=== PATIENT | female | born 1955 | race Hispanic/Latino ===

== ENCOUNTER → 2018-03-06 | Outpatient (CLI) | payer BC | LOC: US 08:47 | PROVIDERS: ATTEND Internal Medicine | DX: R10.9 Unspecified abdominal pain (principal) | CPT/HCPCS: 76700 ==

== ENCOUNTER 2020-11-14 19:11 | Inpatient (IN) | payer BC, MEDICARE ==
[~2020-11-14] VITALS: Ht 165.1 cm; Wt 98.1 kg
[2020-11-14] MEDS ORDERED: ASPIRIN 81 MG CHEW TAB PO ONE (19:30)
[2020-11-14] MEDS ORDERED: ACETAMINOPHEN 325 MG TAB ONE (20:45)
[2020-11-14] MEDS ORDERED: SODIUM CHLORIDE 0.9% 1000ML 2,000 ML ONE (20:46)
[2020-11-14] MEDS ORDERED: AMIODARONE 900MG 500 ML IV ONE (20:47)
[2020-11-14] MEDS ORDERED: AMIODARONE HCL 150MG 100 ML ONE (20:47)
[2020-11-14] MEDS ORDERED: SODIUM CHLORIDE 0.9% 1000ML 1,000 ML IV STA ×2 (20:48)
[2020-11-14 20:54] LABS: BASOPHILS % 0.2 % (0.0-1.0); HEMATOCRIT 32.5 % (34.2-44.1); HEMOGLOBIN 10.5 g/dL (12.0-16.0); LYMPHOCYTES # (AUTO) 0.2 (1.0-3.2); LYMPHOCYTES % 3.2 % (18.0-39.1); MEAN CORPUSCULAR HEMOGLOBIN 28.2 pg (28-32); MEAN CORPUSCULAR HGB CONC 32.3 g/dL (31-35); MEAN CORPUSCULAR VOLUME 87.1 fL (81-99); MONOCYTES # (AUTO) 0.1 (0.2-0.8); NEUTROPHILS # (AUTO) 6.2 (2.1-6.9); NEUTROPHILS % 92.8 % (38.7-80.0); PLATELET COUNT 254 x10e3/uL (140-360); RED BLOOD COUNT 3.73 x10e6/uL (3.6-5.1)
[2020-11-14] MEDS ORDERED: CEFEPIME HCL 1GM 1 GM in SODIUM CHLORIDE 0.9% 50ML 50 ML IV ONE (21:00)
[2020-11-14 21:52] LABS: ALBUMIN 2.4 g/dL (3.5-5.0); ALBUMIN/GLOBULIN RATIO 0.8 (0.8-2.0); ANION GAP 13.6 mmol/L (8-16); CALCIUM 9.6 mg/dL (8.4-10.2); CREATININE, SERUM 2.03 mg/dL (0.57-1.11); POTASSIUM 3.6 mmol/L (3.5-5.1)
[2020-11-14] MEDS ORDERED: AMIODARONE 900MG 500 ML IV STA (21:53)
[2020-11-14] MEDS ORDERED: SODIUM CHLORIDE 0.9% 50ML 50 ML ONE (21:54)
[2020-11-14] MEDS ORDERED: IOPAMIDOL 370 MG/ML 200 ML INFUS..BTL INJ ONE (21:54)
[2020-11-14] MEDS ORDERED: MORPHINE SULFATE INJ 4 MG/ML INJ 1ML IV STA (22:00)
[2020-11-14] MEDS ORDERED: AMIODARONE HCL 150 MG/100 ML BAG IV ONE (22:00)
[2020-11-14 22:12] LABS: HYPOCHROMASIA SLIGHT; LYMPHOCYTES % (MANUAL) 5 % (19-48); MONOCYTES % (MANUAL) 2 % (3.4-9.0); NEUTROPHILS % (MANUAL) 92 % (40-74); PLATELET ESTIMATE ADEQUATE; PLATELET MORPHOLOGY COMMENT NORMAL; POIKILOCYTOSIS SLIGHT; RBC MORPHOLOGY COMMENT NORMAL
[2020-11-14] MEDS ORDERED: ACETAMINOPHEN 325 MG TAB PO ONE (22:15)
[2020-11-14 22:20] LABS: CREATINE KINASE MB 1.8 ng/mL (0-5.0)
[2020-11-14] MEDS ORDERED: ASPIRIN 81 MG CHEW TAB ONE (22:39)
[2020-11-14] MEDS ORDERED: PIPERACILLIN/TAZOBAC 3.375 GM in SODIUM CHLORIDE 0.9% 50ML 50 ML IV STA (22:47)
[2020-11-14 23:00] VITALS: BP 86/67
[2020-11-15] VITALS (26 sets, daily range): BP systolic 84–109; BP diastolic 66–93
[2020-11-15] MEDS ORDERED: SODIUM CHLORIDE 0.9% 1000ML 1,000 ML IV ONE
[2020-11-15] MEDS ORDERED: PANTOPRAZOLE 40 MG 10ML VIAL IV STA (00:14)
[2020-11-15] MEDS ORDERED: HYDROMORPHONE 1MG/1ML INJ IV PRN (00:15)
[2020-11-15] MEDS ORDERED: ONDANSETRON HCL INJ 2MG/ML 2ML 2 MG/ML VIAL IV PRN ×2 (00:15→14:45)
[2020-11-15] MEDS ORDERED: KETOROLAC TROMETHAMINE 30 MG/ML VIAL IV PRN (00:15)
[2020-11-15] MEDS ORDERED: ACETAMINOPHEN 1000 MG/100 ML IV PRN (00:15)
[2020-11-15] MEDS: SODIUM CHLORIDE 0.9% 1000ML 1,000 ML IV SCH ×3 (01:07→18:58)
[2020-11-15 01:24] LABS: CLARITY,URINE CLOUDY (CLEAR); COLOR,URINE AMBER (YELLOW); LEUKOCYTE ESTERASE ,URINE NEGATIVE (NEGATIVE)
[2020-11-15 01:25] LABS: KETONES,URINE TRACE (NEGATIVE); NITRITE,URINE NEGATIVE (NEGATIVE); PROTEIN,URINE DIPSTICK 1+ (NEGATIVE); URINE UROBILINOGEN 1 mg/dL (0.2 - 1)
[2020-11-15 01:41] LABS: WBC,URINE (MAN) >50 /HPF (0-5)
[2020-11-15 01:42] LABS: BACTERIA,URINE MANY /HPF; EPITHELIAL CELLS,URINE MODERATE /LPF
[2020-11-15 06:00] LABS: BASOPHILS % 0.3 % (0.0-1.0); HEMATOCRIT 25.8 % (34.2-44.1); HEMOGLOBIN 8.2 g/dL (12.0-16.0); LYMPHOCYTES # (AUTO) 0.3 (1.0-3.2); LYMPHOCYTES % 2.7 % (18.0-39.1); MEAN CORPUSCULAR HEMOGLOBIN 27.8 pg (28-32); MEAN CORPUSCULAR HGB CONC 31.8 g/dL (31-35); MEAN CORPUSCULAR VOLUME 87.5 fL (81-99); MONOCYTES # (AUTO) 0.5 (0.2-0.8); MONOCYTES % 4.5 % (4.4-11.3); NEUTROPHILS # (AUTO) 9.6 (2.1-6.9); PLATELET COUNT 180 x10e3/uL (140-360); RED BLOOD COUNT 2.95 x10e6/uL (3.6-5.1); RED CELL DISTRIBUTION WIDTH 21.1 % (11.7-14.4)
[2020-11-15] MEDS ORDERED: PIPERACILLIN/TAZOBAC 3.375 GM in SODIUM CHLORIDE 0.9% 50ML 50 ML IV SCH (06:00)
[2020-11-15] MEDS: PIPERACILLIN/TAZOBACTAM 2.25 GM in SODIUM CHLORIDE 0.9% 50ML 50 ML IV SCH ×4 (06:01→23:36)
[2020-11-15 06:24] LABS: ALBUMIN/GLOBULIN RATIO 0.7 (0.8-2.0); ANION GAP 13.8 mmol/L (8-16); CALCIUM 8.6 mg/dL (8.4-10.2); CREATININE, SERUM 2.27 mg/dL (0.57-1.11); POTASSIUM 3.8 mmol/L (3.5-5.1)
[2020-11-15] MEDS: PANTOPRAZOLE 40 MG 10ML VIAL IV SCH (08:38)
[2020-11-15] MEDS ORDERED: SODIUM CHLORIDE 0.9% 500ML 500 ML IV ONE (08:45)
[2020-11-15] MEDS ORDERED: DEXTROSE 50% SYRINGE 50 ML IV PRN (08:45)
[2020-11-15] MEDS ORDERED: HYDROCORTISONE SOD SUCCINATE 100 MG VIAL IV ONE (09:15)
[2020-11-15] MEDS: LEVOTHYROXINE SODIUM 100 MCG/VIAL IV SCH (09:43)
[2020-11-15] MEDS ORDERED: LABETALOL HCL 5 MG/ML 20ML VIAL IV ONE (10:00)
[2020-11-15 10:12] LABS: BAND NEUTROPHILS % (MANUAL) 7 %; LYMPHOCYTES % (MANUAL) 6 % (19-48); MONOCYTES % (MANUAL) 3 % (3.4-9.0); MYELOCYTES % (MANUAL) 1 % (0-0); NEUTROPHILS % (MANUAL) 83 % (40-74); NUCLEATED RED BLOOD CELLS 1
[2020-11-15 10:15] LABS: ANISOCYTOSIS MODERATE; ELLIPTOCYTE, RBC SLIGHT; PLATELET ESTIMATE ADEQUATE
[2020-11-15 10:16] LABS: ACANTHOCYTES FEW; BURR CELLS MODERATE; SCHISTOCYTES FEW
[2020-11-15 10:17] LABS: OVALOCYTES FEW; PLATELET MORPHOLOGY COMMENT NORMAL; RBC MORPHOLOGY COMMENT ABNORMAL
[2020-11-15] MEDS ORDERED: AMIODARONE HCL 100 ML IV ONE (10:40)
[2020-11-15 11:41] LABS: INR 1.44; PROTHROMBIN TIME 18.2 seconds (11.9-14.5)
[2020-11-15 11:42] LABS: PARTIAL THROMBOPLASTIN TIME 51.3 seconds (23.8-35.5)
[2020-11-15] MEDS: INSULIN LISPRO 100 UNIT/1 ML 3ML VIAL SQ SCH ×3 (11:52→23:37)
[2020-11-15] MEDS ORDERED: BUPIVACAINE HCL 0.5% INJ 30 ML VIAL INJ ONE (12:33)
[2020-11-15] MEDS ORDERED: LISINOPRIL10 MG PO (12:35)
[2020-11-15] MEDS ORDERED: PRILOSEC OTC20 MG (12:35)
[2020-11-15] MEDS ORDERED: LEVOTHYROXINE50 MCG PO (12:35)
[2020-11-15] MEDS ORDERED: ATORVASTATIN CA20 MG PO (12:35)
[2020-11-15] MEDS ORDERED: METOPROLOL TAR100 MG PO (12:35)
[2020-11-15] MEDS ORDERED: AMIODARONE HCL200 MG PO (12:35)
[2020-11-15] MEDS ORDERED: ELIQUIS5 MG PO (12:35)
[2020-11-15] MEDS ORDERED: HYDRALAZINE HCL50 MG PO (12:35)
[2020-11-15] MEDS ORDERED: ASPIRIN CHEW81 MG PO (12:35)
[2020-11-15] MEDS: AMIODARONE 900MG 500 ML IV SCH (17:35)
[2020-11-15] MEDS ORDERED: LIDOCAINE HCL 2% LOCAL INJ 5 ML SDV VIAL INJ ONE (17:55)
[2020-11-15] MEDS ORDERED: PROPOFOL IV EMULSION 10 MG/ML 20 ML VIAL ONE (17:55)
[2020-11-15] MEDS ORDERED: ROCURONIUM BROMIDE 10 MG/ML 5ML VIAL IV ONE (17:55)
[2020-11-15] MEDS ORDERED: POVIDONE IODINE 0.05% 0.05 % ML PO ONE (17:55)
[2020-11-15] MEDS ORDERED: PHENYLEPHRINE HCL 1% 10 MG/ML VIAL ONE (17:55)
[2020-11-15] MEDS ORDERED: ONDANSETRON HCL INJ 2MG/ML 2ML 2 MG/ML VIAL ONE (17:55)
[2020-11-15] MEDS ORDERED: SEVOFLURANE INHAL SOLN 250 ML PEN BTL ONE (17:55)
[2020-11-15] MEDS ORDERED: VALSARTAN/SACUBITRIL 24MG/26MG 1 EA TAB PO SCH (21:00)
[2020-11-16] VITALS (26 sets, daily range): BP systolic 79–103; BP diastolic 50–88
[2020-11-16] MEDS: SODIUM CHLORIDE 0.9% 1000ML 1,000 ML IV SCH ×2 (05:01→14:11)
[2020-11-16 05:12] LABS: BASOPHILS % 0.2 % (0.0-1.0); HEMATOCRIT 27.6 % (34.2-44.1); HEMOGLOBIN 8.6 g/dL (12.0-16.0); LYMPHOCYTES # (AUTO) 0.6 (1.0-3.2); LYMPHOCYTES % 4.6 % (18.0-39.1); MEAN CORPUSCULAR HEMOGLOBIN 27.7 pg (28-32); MEAN CORPUSCULAR HGB CONC 31.2 g/dL (31-35); MEAN CORPUSCULAR VOLUME 88.7 fL (81-99); MONOCYTES # (AUTO) 0.5 (0.2-0.8); MONOCYTES % 3.5 % (4.4-11.3); NEUTROPHILS # (AUTO) 12.3 (2.1-6.9); NEUTROPHILS % 90.7 % (38.7-80.0); PLATELET COUNT 221 x10e3/uL (140-360); RED BLOOD COUNT 3.11 x10e6/uL (3.6-5.1); RED CELL DISTRIBUTION WIDTH 21.3 % (11.7-14.4)
[2020-11-16] MEDS: INSULIN LISPRO 100 UNIT/1 ML 3ML VIAL SQ SCH ×4 (05:44→23:17)
[2020-11-16] MEDS: LEVOTHYROXINE SODIUM 100 MCG/VIAL IV SCH (05:48)
[2020-11-16] MEDS: PIPERACILLIN/TAZOBACTAM 2.25 GM in SODIUM CHLORIDE 0.9% 50ML 50 ML IV SCH ×3 (05:48→19:58)
[2020-11-16 06:00] LABS: ALBUMIN 1.9 g/dL (3.5-5.0); ALBUMIN/GLOBULIN RATIO 0.6 (0.8-2.0); CALCIUM 8.3 mg/dL (8.4-10.2); CREATININE, SERUM 2.85 mg/dL (0.57-1.11)
[2020-11-16 06:38] LABS: ANISOCYTOSIS MODERATE; BAND NEUTROPHILS % (MANUAL) 2 %; BURR CELLS MODERATE; ELLIPTOCYTE, RBC SLIGHT; LYMPHOCYTES % (MANUAL) 7 % (19-48); MONOCYTES % (MANUAL) 3 % (3.4-9.0); NEUTROPHILS % (MANUAL) 88 % (40-74); PLATELET ESTIMATE ADEQUATE; PLATELET MORPHOLOGY COMMENT NORMAL; RBC MORPHOLOGY COMMENT ABNORMAL
[2020-11-16 06:40] LABS: OVALOCYTES FEW; SCHISTOCYTES FEW
[2020-11-16 06:41] LABS: ACANTHOCYTES FEW
[2020-11-16] MEDS: PANTOPRAZOLE 40 MG 10ML VIAL IV SCH (07:38)
[2020-11-16] MEDS ORDERED: APIXABAN 5 MG TABLET PO SCH (09:00)
[2020-11-16] MEDS ORDERED: CITRIC ACID/SODIUM CITRATE 30 ML UDC PO ONE (10:20)
[2020-11-16] MEDS: CARVEDILOL 3.125 MG TAB PO SCH ×2 (10:21→17:00)
[2020-11-16 11:06] LABS: % IRON SATURATION 5 % (15-50); IRON 6 ug/dL (50-170); TOTAL IRON BINDING CAPACITY 119 ug/dL (261-478); TRANSFERRIN 85 mg/dL (180-382)
[2020-11-16] MEDS: AMIODARONE 900MG 500 ML IV SCH ×2 (13:00→21:51)
[2020-11-16] MEDS ORDERED: FUROSEMIDE INJ 10 MG/ML 2 ML VIAL IV ONE ×2 (14:30→18:30)
[2020-11-16] MEDS ORDERED: SODIUM BICARBONATE 8.4% SYRING 50 ML in SODIUM CHLORIDE 0.45% 1,000 ML IV ONE (16:00)
[2020-11-16] MEDS: ENOXAPARIN SOD INJ 40 MG/0.4 ML SYR SC SCH (18:24)
[2020-11-16] MEDS: HYDROCODONE/APAP 5MG-325MG TAB PO PRN (22:18)
[2020-11-17] VITALS (22 sets, daily range): BP systolic 82–114; BP diastolic 57–87
[2020-11-17] MEDS: SODIUM CHLORIDE 0.9% 1000ML 1,000 ML IV SCH ×4 (00:33→20:59)
[2020-11-17] MEDS: PIPERACILLIN/TAZOBACTAM 2.25 GM in SODIUM CHLORIDE 0.9% 50ML 50 ML IV SCH ×2 (00:33→06:09)
[2020-11-17 04:30] LABS: BASOPHILS % 0.2 % (0.0-1.0); EOSINOPHILS % 0.1 % (0.0-6.0); HEMATOCRIT 26.1 % (34.2-44.1); HEMOGLOBIN 8.5 g/dL (12.0-16.0); LYMPHOCYTES % 7.5 % (18.0-39.1); MEAN CORPUSCULAR HEMOGLOBIN 28.2 pg (28-32); MEAN CORPUSCULAR HGB CONC 32.6 g/dL (31-35); MEAN CORPUSCULAR VOLUME 86.7 fL (81-99); MONOCYTES # (AUTO) 0.4 (0.2-0.8); MONOCYTES % 2.7 % (4.4-11.3); NEUTROPHILS # (AUTO) 11.5 (2.1-6.9); NEUTROPHILS % 88.3 % (38.7-80.0); PLATELET COUNT 218 x10e3/uL (140-360); RED BLOOD COUNT 3.01 x10e6/uL (3.6-5.1); RED CELL DISTRIBUTION WIDTH 21.7 % (11.7-14.4)
[2020-11-17 04:41] LABS: INR 1.15; PROTHROMBIN TIME 15.4 seconds (11.9-14.5)
[2020-11-17 04:50] LABS: ALBUMIN 1.6 g/dL (3.5-5.0); ALBUMIN/GLOBULIN RATIO 0.5 (0.8-2.0); ANION GAP 14.8 mmol/L (8-16); CALCIUM 8.5 mg/dL (8.4-10.2); CREATININE, SERUM 2.57 mg/dL (0.57-1.11); POTASSIUM 3.8 mmol/L (3.5-5.1)
[2020-11-17] MEDS: LEVOTHYROXINE SODIUM 100 MCG/VIAL IV SCH (05:39)
[2020-11-17] MEDS: INSULIN LISPRO 100 UNIT/1 ML 3ML VIAL SQ SCH ×3 (05:39→18:53)
[2020-11-17 07:26] LABS: EOSINOPHILS % (MANUAL) 1 % (0-7); LYMPHOCYTES % (MANUAL) 7 % (19-48); MONOCYTES % (MANUAL) 2 % (3.4-9.0); NEUTROPHILS % (MANUAL) 90 % (40-74)
[2020-11-17 07:36] LABS: ANISOCYTOSIS MODERATE; BURR CELLS MODERATE
[2020-11-17 07:37] LABS: TEAR DROP CELLS FEW
[2020-11-17 07:38] LABS: PLATELET ESTIMATE ADEQUATE; PLATELET MORPHOLOGY COMMENT NORMAL; RBC MORPHOLOGY COMMENT ABNORMAL; SCHISTOCYTES RARE
[2020-11-17] MEDS: CARVEDILOL 3.125 MG TAB PO SCH ×2 (08:05→14:22)
[2020-11-17] MEDS: PANTOPRAZOLE 40 MG 10ML VIAL IV SCH (08:43)
[2020-11-17] MEDS: HYDROCODONE/APAP 5MG-325MG TAB PO PRN ×2 (09:54→14:30)
[2020-11-17] MEDS ORDERED: BUMETANIDE 1 MG TAB PO ONE (12:45)
[2020-11-17] MEDS ORDERED: BUMETANIDE INJ 0.25MG/ML 4ML VIAL IV ONE (13:15)
[2020-11-17] MEDS: MEROPENEM 500MG 500 MG in SODIUM CHLORIDE 0.9% 50ML 50 ML IV SCH ×2 (14:22→20:58)
[2020-11-17] MEDS: SODIUM BICARBONATE 8.4% SYRING 50 ML in SODIUM CHLORIDE 0.45% 1,000 ML IV SCH (18:41)
[2020-11-17] MEDS: ENOXAPARIN SOD INJ 40 MG/0.4 ML SYR SC SCH (18:41)
[2020-11-17] MEDS: METOPROLOL TARTRATE INJ 1 MG/ML VIAL IV PRN (20:13)
[2020-11-17] MEDS ORDERED: MORPHINE SULFATE INJ 2 MG/ML SYR IV STA ×2 (21:50→21:53)
[2020-11-17] MEDS ORDERED: NALOXONE HCL INJ 0.4 MG/ML AMP IV PRN (22:00)
[2020-11-17 22:12] LABS: CREATINE KINASE MB 1.1 ng/mL (0-5.0)
[2020-11-18] VITALS (25 sets, daily range): BP systolic 102–130; BP diastolic 74–117
[2020-11-18 03:43] LABS: BASOPHILS % 0.2 % (0.0-1.0); EOSINOPHILS # (AUTO) 0.1 (0.0-0.4); EOSINOPHILS % 0.4 % (0.0-6.0); HEMATOCRIT 27.5 % (34.2-44.1); LYMPHOCYTES % 8.1 % (18.0-39.1); MEAN CORPUSCULAR HEMOGLOBIN 28.5 pg (28-32); MEAN CORPUSCULAR HGB CONC 32.7 g/dL (31-35); MONOCYTES # (AUTO) 0.5 (0.2-0.8); MONOCYTES % 3.7 % (4.4-11.3); NEUTROPHILS % 86.1 % (38.7-80.0); PLATELET COUNT 246 x10e3/uL (140-360); RED BLOOD COUNT 3.16 x10e6/uL (3.6-5.1); RED CELL DISTRIBUTION WIDTH 22.1 % (11.7-14.4)
[2020-11-18 04:02] LABS: MAGNESIUM 1.3 MG/DL (1.3-2.1); PHOSPHORUS 3.3 MG/DL (2.3-4.7)
[2020-11-18 04:05] LABS: CREATINE KINASE MB 1.3 ng/mL (0-5.0)
[2020-11-18 04:08] LABS: ALBUMIN 1.8 g/dL (3.5-5.0); ALBUMIN/GLOBULIN RATIO 0.5 (0.8-2.0); ANION GAP 14.7 mmol/L (8-16); CALCIUM 9.1 mg/dL (8.4-10.2); CREATININE, SERUM 1.86 mg/dL (0.57-1.11); POTASSIUM 3.7 mmol/L (3.5-5.1)
[2020-11-18] MEDS: SODIUM BICARBONATE 8.4% SYRING 50 ML in SODIUM CHLORIDE 0.45% 1,000 ML IV SCH (04:36)
[2020-11-18] MEDS: METOPROLOL TARTRATE INJ 1 MG/ML VIAL IV PRN (04:57)
[2020-11-18] MEDS: MEROPENEM 500MG 500 MG in SODIUM CHLORIDE 0.9% 50ML 50 ML IV SCH ×3 (04:57→20:03)
[2020-11-18] MEDS: HYDROCODONE/APAP 5MG-325MG TAB PO PRN (04:57)
[2020-11-18] MEDS: LEVOTHYROXINE SODIUM 50 MCG TAB PO SCH (05:30)
[2020-11-18] MEDS: INSULIN LISPRO 100 UNIT/1 ML 3ML VIAL SQ SCH ×4 (05:54→20:02)
[2020-11-18] MEDS: SODIUM CHLORIDE 0.9% 1000ML 1,000 ML IV SCH ×3 (07:36→20:03)
[2020-11-18] MEDS: OMEPRAZOLE 20 MG CAP PO SCH (08:30)
[2020-11-18] MEDS: CARVEDILOL 3.125 MG TAB PO SCH ×2 (08:30→18:00)
[2020-11-18] MEDS ORDERED: MAGNESIUM SULFATE 2GM/50ML 50 ML IV ONE ×2 (12:45)
[2020-11-18] MEDS: AMIODARONE 900MG 500 ML IV SCH (13:00)
[2020-11-18] MEDS: ENOXAPARIN SOD INJ 40 MG/0.4 ML SYR SC SCH (17:30)
[2020-11-18] MEDS: SODIUM BICARBONATE 8.4% 150 ML in DEXTROSE 5% 1,000 ML IV SCH (20:58)
[2020-11-18] MEDS ORDERED: DEXTROSE 5% 1,000 ML IV ONE (21:09)
[2020-11-18] MEDS ORDERED: SODIUM BICARBONATE 8.4% SYRING 150 ML ONE (21:10)
[2020-11-19] VITALS (27 sets, daily range): BP systolic 115–156; BP diastolic 86–119
[2020-11-19] MEDS: METOPROLOL TARTRATE INJ 1 MG/ML VIAL IV PRN ×2 (01:39→18:03)
[2020-11-19 03:54] LABS: BASOPHILS % 0.1 % (0.0-1.0); EOSINOPHILS # (AUTO) 0.1 (0.0-0.4); EOSINOPHILS % 0.5 % (0.0-6.0); HEMATOCRIT 25.9 % (34.2-44.1); HEMOGLOBIN 8.5 g/dL (12.0-16.0); LYMPHOCYTES # (AUTO) 0.9 (1.0-3.2); LYMPHOCYTES % 8.2 % (18.0-39.1); MEAN CORPUSCULAR HEMOGLOBIN 28.5 pg (28-32); MEAN CORPUSCULAR HGB CONC 32.8 g/dL (31-35); MEAN CORPUSCULAR VOLUME 86.9 fL (81-99); MONOCYTES # (AUTO) 0.6 (0.2-0.8); MONOCYTES % 5.2 % (4.4-11.3); NEUTROPHILS # (AUTO) 9.3 (2.1-6.9); NEUTROPHILS % 84.3 % (38.7-80.0); PLATELET COUNT 249 x10e3/uL (140-360); RED BLOOD COUNT 2.98 x10e6/uL (3.6-5.1); RED CELL DISTRIBUTION WIDTH 22.1 % (11.7-14.4)
[2020-11-19] MEDS: MEROPENEM 500MG 500 MG in SODIUM CHLORIDE 0.9% 50ML 50 ML IV SCH ×3 (04:02→21:19)
[2020-11-19 04:14] LABS: ALBUMIN 1.7 g/dL (3.5-5.0); ALBUMIN/GLOBULIN RATIO 0.5 (0.8-2.0); ANION GAP 12.7 mmol/L (8-16); CREATININE, SERUM 1.32 mg/dL (0.57-1.11); PHOSPHORUS 2.6 MG/DL (2.3-4.7); POTASSIUM 3.7 mmol/L (3.5-5.1)
[2020-11-19] MEDS: HYDROCODONE/APAP 5MG-325MG TAB PO PRN ×2 (04:49→11:45)
[2020-11-19] MEDS: LEVOTHYROXINE SODIUM 50 MCG TAB PO SCH (04:49)
[2020-11-19] MEDS: INSULIN LISPRO 100 UNIT/1 ML 3ML VIAL SQ SCH ×4 (07:07→21:33)
[2020-11-19] MEDS: OMEPRAZOLE 20 MG CAP PO SCH (09:24)
[2020-11-19] MEDS: CARVEDILOL 3.125 MG TAB PO SCH (09:25)
[2020-11-19] MEDS: METOPROLOL TARTRATE 50 MG TAB PO SCH ×3 (11:19→21:20)
[2020-11-19] MEDS: SODIUM BICARBONATE 8.4% 150 ML in DEXTROSE 5% 1,000 ML IV SCH (12:22)
[2020-11-19] MEDS ORDERED: POTASSIUM PHOSPHATE 15 MM in SODIUM CHLORIDE 0.9% 250ML 250 ML IV ONE (13:00)
[2020-11-19] MEDS ORDERED: MAGNESIUM SULF 1GRAM/DEXTROSE 100 ML IV ONE (13:00)
[2020-11-19] MEDS: AMIODARONE 900MG 500 ML IV SCH (13:00)
[2020-11-19] MEDS: ENOXAPARIN SOD INJ 40 MG/0.4 ML SYR SC SCH (17:49)
[2020-11-19] MEDS ORDERED: FUROSEMIDE INJ 10 MG/ML 2 ML VIAL IV ONE (21:15)
[2020-11-19] MEDS ORDERED: SODIUM BICARBONATE 8.4% SYRING 50 ML in SODIUM CHLORIDE 0.45% 1,000 ML IV SCH (23:59)
[2020-11-20] VITALS (24 sets, daily range): BP systolic 114–159; BP diastolic 97–124
[2020-11-20 05:34] LABS: BASOPHILS % 0.1 % (0.0-1.0); EOSINOPHILS % 0.4 % (0.0-6.0); HEMATOCRIT 28.2 % (34.2-44.1); HEMOGLOBIN 9.2 g/dL (12.0-16.0); LYMPHOCYTES # (AUTO) 0.9 (1.0-3.2); MEAN CORPUSCULAR HEMOGLOBIN 27.7 pg (28-32); MEAN CORPUSCULAR HGB CONC 32.6 g/dL (31-35); MEAN CORPUSCULAR VOLUME 84.9 fL (81-99); MONOCYTES # (AUTO) 0.7 (0.2-0.8); MONOCYTES % 6.5 % (4.4-11.3); NEUTROPHILS # (AUTO) 8.3 (2.1-6.9); NEUTROPHILS % 79.8 % (38.7-80.0); PLATELET COUNT 290 x10e3/uL (140-360); RED BLOOD COUNT 3.32 x10e6/uL (3.6-5.1); RED CELL DISTRIBUTION WIDTH 21.3 % (11.7-14.4)
[2020-11-20] MEDS: LEVOTHYROXINE SODIUM 50 MCG TAB PO SCH (05:36)
[2020-11-20] MEDS: MEROPENEM 500MG 500 MG in SODIUM CHLORIDE 0.9% 50ML 50 ML IV SCH ×3 (05:36→21:02)
[2020-11-20] MEDS: METOPROLOL TARTRATE 50 MG TAB PO SCH (05:36)
[2020-11-20 05:40] LABS: CALCIUM IONIZED 1.4 mmol/L (1.09-1.30)
[2020-11-20 05:54] LABS: ALANINE AMINOTRANSFERASE 16 IU/L (0-55); ALBUMIN 1.8 g/dL (3.5-5.0); ALBUMIN/GLOBULIN RATIO 0.5 (0.8-2.0); ALKALINE PHOSPHATASE 133 IU/L (40-150); ANION GAP 11.3 mmol/L (8-16); BLOOD UREA NITROGEN 27 mg/dL (7-26); BUN/CREATININE RATIO 30 (6-25); CALCIUM 9.2 mg/dL (8.4-10.2); CARBON DIOXIDE 22 mmol/L (22-29); CHLORIDE 103 mmol/L (98-107); CREATININE, SERUM 0.89 mg/dL (0.57-1.11); EST GLOMERULAR FILTRATION RATE > 60 ML/MIN (60-); GLUCOSE 130 mg/dL (74-118); POTASSIUM 3.3 mmol/L (3.5-5.1); SODIUM 133 mmol/L (136-145)
[2020-11-20 06:08] LABS: MAGNESIUM 1.5 MG/DL (1.3-2.1); PHOSPHORUS 1.8 MG/DL (2.3-4.7)
[2020-11-20] MEDS: INSULIN LISPRO 100 UNIT/1 ML 3ML VIAL SQ SCH ×4 (07:30→20:44)
[2020-11-20] MEDS: OMEPRAZOLE 20 MG CAP PO SCH (07:56)
[2020-11-20] MEDS ORDERED: POTASSIUM CHLORIDE 10MEQ EA PO ONE (09:00)
[2020-11-20] MEDS ORDERED: MAGNESIUM SULFATE 2GM/50ML IV ONE (09:00)
[2020-11-20] MEDS ORDERED: POTASSIUM PHOSPHATE 20 MM in SODIUM CHLORIDE 0.9% 250ML 250 ML IV ONE (09:00)
[2020-11-20] MEDS ORDERED: MAGNESIUM SULFATE 2GM/50ML 50 ML IV SCH (09:00)
[2020-11-20 09:33] LABS: AMYLASE 28 U/L (25-125); LIPASE 44 U/L (8-78)
[2020-11-20] MEDS: AMIODARONE HCL 200 MG TAB PO SCH ×2 (13:07→17:22)
[2020-11-20] MEDS ORDERED: MAGNESIUM OXIDE 400 MG TAB PO ONE (14:00)
[2020-11-20] MEDS: METOPROLOL TARTRATE 25 MG TAB PO SCH ×2 (15:21→21:02)
[2020-11-20] MEDS: ENOXAPARIN SOD INJ 40 MG/0.4 ML SYR SC SCH (17:22)
[2020-11-21] VITALS (12 sets, daily range): BP systolic 115–148; BP diastolic 86–119
[2020-11-21 04:54] LABS: BASOPHILS % 0.1 % (0.0-1.0); EOSINOPHILS % 0.3 % (0.0-6.0); HEMATOCRIT 29.8 % (34.2-44.1); HEMOGLOBIN 9.5 g/dL (12.0-16.0); LYMPHOCYTES % 8.6 % (18.0-39.1); MEAN CORPUSCULAR HEMOGLOBIN 27.7 pg (28-32); MEAN CORPUSCULAR HGB CONC 31.9 g/dL (31-35); MEAN CORPUSCULAR VOLUME 86.9 fL (81-99); MONOCYTES # (AUTO) 0.7 (0.2-0.8); NEUTROPHILS # (AUTO) 9.6 (2.1-6.9); NEUTROPHILS % 82.8 % (38.7-80.0); PLATELET COUNT 342 x10e3/uL (140-360); RED BLOOD COUNT 3.43 x10e6/uL (3.6-5.1)
[2020-11-21 05:15] LABS: ALANINE AMINOTRANSFERASE 16 IU/L (0-55); ALBUMIN 1.8 g/dL (3.5-5.0); ALBUMIN/GLOBULIN RATIO 0.5 (0.8-2.0); ALKALINE PHOSPHATASE 143 IU/L (40-150); ANION GAP 13.2 mmol/L (8-16); BLOOD UREA NITROGEN 21 mg/dL (7-26); BUN/CREATININE RATIO 26 (6-25); CALCIUM 9.5 mg/dL (8.4-10.2); CARBON DIOXIDE 21 mmol/L (22-29); CHLORIDE 106 mmol/L (98-107); CREATININE, SERUM 0.82 mg/dL (0.57-1.11); EST GLOMERULAR FILTRATION RATE > 60 ML/MIN (60-); GLUCOSE 140 mg/dL (74-118); POTASSIUM 4.2 mmol/L (3.5-5.1); SODIUM 136 mmol/L (136-145)
[2020-11-21 05:47] LABS: MAGNESIUM 1.7 MG/DL (1.3-2.1); PHOSPHORUS 2.3 MG/DL (2.3-4.7)
[2020-11-21] MEDS: METOPROLOL TARTRATE 25 MG TAB PO SCH ×2 (06:05→16:36)
[2020-11-21] MEDS: MEROPENEM 500MG 500 MG in SODIUM CHLORIDE 0.9% 50ML 50 ML IV SCH ×3 (06:05→22:00)
[2020-11-21] MEDS: LEVOTHYROXINE SODIUM 50 MCG TAB PO SCH (06:05)
[2020-11-21] MEDS: INSULIN LISPRO 100 UNIT/1 ML 3ML VIAL SQ SCH ×4 (07:08→21:00)
[2020-11-21] MEDS: OMEPRAZOLE 20 MG CAP PO SCH (08:01)
[2020-11-21] MEDS: AMIODARONE HCL 200 MG TAB PO SCH ×2 (08:01→16:36)
[2020-11-21] MEDS ORDERED: METOPROLOL TARTRATE 25 MG TAB PO NR (09:15)
[2020-11-21] MEDS ORDERED: METOPROLOL TARTRATE 25 MG TAB PO SCH (09:15)
[2020-11-21] MEDS ORDERED: ENOXAPARIN SOD INJ 40 MG/0.4 ML SYR SC SCH (17:00)
[2020-11-21] MEDS ORDERED: SODIUM CHLORIDE 0.9% 250ML 250 ML ONE (23:11)
[2020-11-22] VITALS (8 sets, daily range): BP systolic 95–164; BP diastolic 54–113
[2020-11-22] MEDS: LEVOTHYROXINE SODIUM 50 MCG TAB PO SCH (05:21)
[2020-11-22] MEDS: MEROPENEM 500MG 500 MG in SODIUM CHLORIDE 0.9% 50ML 50 ML IV SCH ×3 (05:21→21:26)
[2020-11-22] MEDS ORDERED: SODIUM CHLORIDE 0.9% 50ML 50 ML ONE (05:42)
[2020-11-22] MEDS: INSULIN LISPRO 100 UNIT/1 ML 3ML VIAL SQ SCH ×4 (07:30→21:33)
[2020-11-22] MEDS: AMIODARONE HCL 200 MG TAB PO SCH ×2 (09:28→16:23)
[2020-11-22] MEDS: OMEPRAZOLE 20 MG CAP PO SCH (09:28)
[2020-11-22] MEDS: METOPROLOL TARTRATE 25 MG TAB PO SCH ×2 (09:28→16:24)
[2020-11-22 15:44] LABS: BODY FLUID APPEARANCE CLOUDY; BODY FLUID COLOR YELLOW; BODY FLUID TYPE PLEURAL
[2020-11-22 16:48] LABS: RBC,BODY FLUID < 2000 cells/uL; WBC,BODY FLUID 173 cells/uL
[2020-11-22 17:00] LABS: LYMPHOCYTES,BODY FLUID 70 %; MONO/MACROPHG,BODY FLUID 9 %; NEUTROPHILS,BODY FLUID 14 %; OTHER CELLS,BODY FLUID 7 %
[2020-11-22] MEDS: ENOXAPARIN INJ 80 MG/0.8 ML SYR SC SCH (17:21)
[2020-11-23] VITALS (7 sets, daily range): BP systolic 125–146; BP diastolic 95–110
[2020-11-23 04:54] LABS: BASOPHILS % 0.1 % (0.0-1.0); EOSINOPHILS # (AUTO) 0.1 (0.0-0.4); EOSINOPHILS % 0.7 % (0.0-6.0); HEMATOCRIT 28.6 % (34.2-44.1); HEMOGLOBIN 8.9 g/dL (12.0-16.0); LYMPHOCYTES # (AUTO) 1.1 (1.0-3.2); LYMPHOCYTES % 11.9 % (18.0-39.1); MEAN CORPUSCULAR HEMOGLOBIN 27.3 pg (28-32); MEAN CORPUSCULAR HGB CONC 31.1 g/dL (31-35); MEAN CORPUSCULAR VOLUME 87.7 fL (81-99); MONOCYTES # (AUTO) 0.5 (0.2-0.8); MONOCYTES % 5.6 % (4.4-11.3); NEUTROPHILS # (AUTO) 7.2 (2.1-6.9); NEUTROPHILS % 80.5 % (38.7-80.0); PLATELET COUNT 332 x10e3/uL (140-360); RED BLOOD COUNT 3.26 x10e6/uL (3.6-5.1); RED CELL DISTRIBUTION WIDTH 21.7 % (11.7-14.4)
[2020-11-23] MEDS: LEVOTHYROXINE SODIUM 50 MCG TAB PO SCH (05:05)
[2020-11-23] MEDS: MEROPENEM 500MG 500 MG in SODIUM CHLORIDE 0.9% 50ML 50 ML IV SCH ×3 (05:05→21:47)
[2020-11-23 05:17] LABS: ANION GAP 10.3 mmol/L (8-16); BLOOD UREA NITROGEN 16 mg/dL (7-26); BUN/CREATININE RATIO 21 (6-25); CALCIUM 9.6 mg/dL (8.4-10.2); CARBON DIOXIDE 23 mmol/L (22-29); CHLORIDE 108 mmol/L (98-107); CREATININE, SERUM 0.75 mg/dL (0.57-1.11); EST GLOMERULAR FILTRATION RATE > 60 ML/MIN (60-); GLUCOSE 142 mg/dL (74-118); POTASSIUM 4.3 mmol/L (3.5-5.1); SODIUM 137 mmol/L (136-145)
[2020-11-23] MEDS: INSULIN LISPRO 100 UNIT/1 ML 3ML VIAL SQ SCH ×4 (07:30→21:00)
[2020-11-23] MEDS: AMIODARONE HCL 200 MG TAB PO SCH ×2 (09:46→17:07)
[2020-11-23] MEDS: METOPROLOL TARTRATE 25 MG TAB PO SCH (09:50)
[2020-11-23] MEDS: ENOXAPARIN INJ 80 MG/0.8 ML SYR SC SCH ×2 (09:50→17:07)
[2020-11-23] MEDS: OMEPRAZOLE 20 MG CAP PO SCH (09:50)
[2020-11-23] MEDS ORDERED: ACETAMINOPHEN 325 MG TAB PO PRN (10:30)
[2020-11-23 12:13] LABS: FREE THYROXINE INDEX 1.8395 (1.4-3.8); THYROID STIMULATING HORMONE 29.734 uIU/mL (0.350-4.940)
[2020-11-23] MEDS: METOPROLOL TARTRATE 50 MG TAB PO SCH ×2 (13:21→22:28)
[2020-11-23] MEDS ORDERED: FUROSEMIDE INJ 10 MG/ML 4 ML VIAL IV SCH (18:00)
[2020-11-24] VITALS: BP 127/116
[2020-11-24 04:00] VITALS: BP 119/98
[2020-11-24] MEDS: MEROPENEM 500MG 500 MG in SODIUM CHLORIDE 0.9% 50ML 50 ML IV SCH (05:39)
[2020-11-24] MEDS: LEVOTHYROXINE SODIUM 50 MCG TAB PO SCH (05:40)
[2020-11-24] MEDS: METOPROLOL TARTRATE 50 MG TAB PO SCH ×2 (05:40→12:15)
[2020-11-24] MEDS: INSULIN LISPRO 100 UNIT/1 ML 3ML VIAL SQ SCH ×2 (07:30→12:15)
[2020-11-24] MEDS: OMEPRAZOLE 20 MG CAP PO SCH (08:22)
[2020-11-24] MEDS: AMIODARONE HCL 200 MG TAB PO SCH (08:22)
[2020-11-24 08:23] VITALS: BP 121/87
[2020-11-24] MEDS: ENOXAPARIN INJ 80 MG/0.8 ML SYR SC SCH (08:25)
[2020-11-24 08:31] VITALS: BP 121/87
[2020-11-24] MEDS ORDERED: FUROSEMIDE 40 MG TAB PO SCH (09:00)
[2020-11-24 12:00] VITALS: BP 105/81
[2020-11-24] MEDS ORDERED: MEROPENEM 500MG/ NS 50ML 50 ML IV SCH (14:00)
== END 2020-11-24 14:18 | DRG 853 ==
LOC: ER 19:16 → ERHOLD 22:40 → ICU 23:05 → MED/SURG3 11-21 19:50
PROVIDERS: ADMIT Internal Medicine; ATTEND Internal Medicine
PROC: 02HV33Z Insertion of Infusion Device into Superior Vena Cava, Percutaneous Approach (ICD-10-PCS; 2020-11-15)
PROC: 0FT44ZZ Resection of Gallbladder, Percutaneous Endoscopic Approach (ICD-10-PCS; principal; 2020-11-15 13:30)
PROC: 0W993ZZ Drainage of Right Pleural Cavity, Percutaneous Approach (ICD-10-PCS; 2020-11-22)
DX: A41.9 Sepsis, unspecified organism (principal); R65.21 Severe sepsis with septic shock; J18.9 Pneumonia, unspecified organism; J96.01 Acute respiratory failure with hypoxia; I50.23 Acute on chronic systolic (congestive) heart failure; K81.0 Acute cholecystitis; N17.9 Acute kidney failure, unspecified; I13.0 Hypertensive heart and chronic kidney disease with heart failure and stage 1 through stage 4 chronic kidney disease, or unspecified chronic kidney disease; I69.354 Hemiplegia and hemiparesis following cerebral infarction affecting left non-dominant side; E87.2 Acidosis; N39.0 Urinary tract infection, site not specified; Z16.12 Extended spectrum beta lactamase (ESBL) resistance; I50.9 Heart failure, unspecified; I25.10 Atherosclerotic heart disease of native coronary artery without angina pectoris; I48.91 Unspecified atrial fibrillation; K82.A1 Gangrene of gallbladder in cholecystitis; Z79.01 Long term (current) use of anticoagulants; E11.22 Type 2 diabetes mellitus with diabetic chronic kidney disease; N18.9 Chronic kidney disease, unspecified; E03.9 Hypothyroidism, unspecified; E78.5 Hyperlipidemia, unspecified; Z20.822 Contact with and (suspected) exposure to COVID-19; Z83.3 Family history of diabetes mellitus; Z82.49 Family history of ischemic heart disease and other diseases of the circulatory system; E83.42 Hypomagnesemia; E87.6 Hypokalemia; E83.39 Other disorders of phosphorus metabolism; I69.319 Unspecified symptoms and signs involving cognitive functions following cerebral infarction; F01.50 Vascular dementia, unspecified severity, without behavioral disturbance, psychotic disturbance, mood disturbance, and anxiety; K66.0 Peritoneal adhesions (postprocedural) (postinfection); Z79.82 Long term (current) use of aspirin
CPT/HCPCS: 32555; 36415; 36569; 71045; 74018; 74177; 74470; 76604; 80048; 80053; 81001; 82150; 82550; 82553; 82945; 82948; 83540; 83605; 83615; 83690; 83735; 83880; 83970; 84100; 84157; 84436; 84443; 84466; 84479; 84484; 85025; 85610; 85730; 87040; 87070; 87071; 87186; 87205; 88112; 88304; 88305; 89051; 93005; 93306; 93926; 96372; 97139; 99251; 99284; J0692; J1650; J1720; J1885; J1940; J2001; J2185; J2270; J2370; J2405; J2543; J3475; J7030; J7050; J7070; Q9967; U0002